=== PATIENT | female | born 1980 | race Caucasian/White ===

== ENCOUNTER 2018-11-28 14:01 | Emergency (ER) | payer BC, MEDICAID, OTHER ==
[2018-11-28 15:35] LABS: ABS Basophils 0 10^3/ul (0-0.2); ABS Eosinophils 0.3 10^3/ul (0-0.6); ABS Lymphocytes 2.1 10^3/ul (1.0-4.8); ABS Monocytes 0.5 10^3/ul (0-0.8); ABS Neutrophils 3.2 10^3/ul (1.5-7.7); ABS Nucleated RBC 0 10^3/ul; Eosinophil % 5.1 %; Hematocrit 38 % (35-47); Hemoglobin 12.9 g/dl (12.0-16.0); Lymphocyte % 33.7 %; Mean Corpuscular HGB Conc 34 g/dl (31-36); Mean Corpuscular Hemoglobin 31 pg (27-31); Mean Corpuscular Volume 90 fL (80-97); Mean Platelet Volume 7.7 fL (7.4-10.4); Nucleated Red Blood Cells % 0.1; Platelet Count 232 10^3/ul (150-450); Red Blood Count 4.23 10^6/ul (4.00-5.40); Red Cell Distribution Width 13 % (10.5-15); White Blood Count 6.1 10^3/ul (3.5-10.8)
--- NOTE | 2018-11-28 15:41 | ED ---
HPI Chest Pain - HPI Summary HPI Summary: This patient is a 38 year old female presenting to [facility] with a CC of chest pain that began 3 days ago. She states that since then the pain has gotten worse and began radiating to her left arm. She rates the pain 3/10 in severity. Pt reports that her father and grandfather had heart attacks at 48 years old and both . She states she may have strained it lifting her child. She has some neck pain on the left but it is worse with palpation. She is denying fever , chills, and n/v. She denies any hx of DVT and PE. She states she thought it was not a big deal but then she began worrying it was her heart and would like to have it checked out. - History of Current Complaint Chief Complaint: EDChestPainROMI Time Seen by Provider: 11/28/18 15:13 Hx Obtained From: Patient Onset/Duration: Started Days Ago, Still Present Timing: Constant Initial Severity: Mild Current Severity: Moderate Pain Intensity: 3 Pain Scale Used: 0-10 Numeric Chest Pain Radiates: Yes Chest Pain Radiates To:: Arm, Neck Associated Signs and Symptoms: Positive: Negative - vomiting. Negative: Nausea - Allergy/Home Medications Allergies/Adverse Reactions: Allergies Allergy/AdvReac Type Severity Reaction Status Date / Time No Known Allergies Allergy Verified 11/28/18 15:41 PMH/Surg Hx/FS Hx/Imm Hx Endocrine/Hematology History: Denies: Hx Systemic Lupus Erythematosus, Hx Unexplained Bleeding Cardiovascular History: Denies: Hx Coronary Artery Disease, Hx Hypercholesterolemia Respiratory History: Denies: Hx Chronic Obstructive Pulmonary Disease (COPD), Hx Seasonal Allergies Musculoskeletal History: Denies: Hx Back Problems, Hx of Fracture(s) Psychiatric History: Denies: Hx Schizophrenia Infectious Disease History: No Infectious Disease History: Denies: Traveled Outside the [place] in Last 30 Days - Family History Known Family History: Positive: Cardiac Disease - MS , Hypertension - Social History Lives: With Family Alcohol Use: None Substance Use Type: Reports: None Smoking Status (MU): Never Smoked Tobacco Review of Systems Negative: Fever, Chills Positive: Chest Pain Negative: Vomiting, Nausea Positive: Other - neck pain and pain into the arm All Other Systems Reviewed And Are Negative: Yes Physical Exam - Summary Physical Exam Summary: GENERAL: Patient is a well-developed and nourished F who is lying comfortable in the stretcher. Patient is not in any acute respiratory distress. HEAD AND FACE: Normocephalic EYES: PERRLA, EOMI x 2. EARS: Hearing grossly intact. MOUTH: Oropharynx within normal limits. NECK: Supple, trachea is midline, no adenopathy, no JVD, no carotid bruit. CHEST: Symmetric, TTP in the left chest wall LUNGS: Clear to auscultation bilaterally. No wheezing or crackles. CVS: Regular rate and rhythm, S1 and S2 present, no murmurs or gallops appreciated. ABDOMEN: Soft, non-tender. Bowel sounds are normal. No abdominal abnormal pulsations. EXTREMITIES: Full ROM in all major joints, no edema, no cyanosis or clubbing. NEURO: Alert and oriented x 3. No acute neurological deficits. Speech is normal and follows commands. SKIN: Dry and warm Triage Information Reviewed: Yes Vital Signs On Initial Exam: Initial Vitals Temp Pulse Resp BP Pulse Ox 98.5 F 74 16 117/79 96 11/28/18 14:08 11/28/18 14:08 11/28/18 14:08 11/28/18 14:08 11/28/18 14:08 Vital Signs Reviewed: Yes Diagnostics - Vital Signs Vital Signs Temp Pulse Resp BP Pulse Ox 11/28/18 15:17 57 99 11/28/18 15:15 59 111/60 98 11/28/18 14:08 98.5 F 74 16 117/79 96 - Laboratory Lab Results: Lab Results 11/28/18 Range/Units 15:26 WBC 6.1 (3.5-10.8) 10^3/ul RBC 4.23 (4.00-5.40) 10^6/ul Hgb 12.9 (12.0-16.0) g/dl Hct 38 (35-47) % MCV 90 (80-97) fL MCH 31 (27-31) pg MCHC 34 (31-36) g/dl RDW 13 (10.5-15) % Plt Count 232 (150-450) 10^3/ul MPV 7.7 (7.4-10.4) fL Neut % (Auto) 52.7 % Lymph % (Auto) 33.7 % [place] % (Auto) 7.7 % Eos % (Auto) 5.1 % Baso % (Auto) 0.8 % Absolute Neuts (auto) 3.2 (1.5-7.7) 10^3/ul Absolute Lymphs (auto) 2.1 (1.0-4.8) 10^3/ul Absolute Monos (auto) 0.5 (0-0.8) 10^3/ul Absolute Eos (auto) 0.3 (0-0.6) 10^3/ul Absolute Basos (auto) 0 (0-0.2) 10^3/ul Absolute Nucleated RBC 0 10^3/ul Nucleated RBC % 0.1 Result Diagrams: 11/28/18 15:26 11/28/18 15:26 Lab Statement: Any lab studies that have been ordered have been reviewed, and results considered in the medical decision making process. - Radiology CXR Radiology Interpretation Completed By: Radiologist Summary of Radiographic Findings: no active cardiopulmonary disease. ED physician has reviewed this report. - EKG 1414 Cardiac Rate: Bradycardia EKG Rhythm: Sinus Rhythm - at 60 bpm Summary of EKG Findings: no ischemic changes. Nml intervals Re-Evaluation - Re-Evaluation First Eval Re-Evaluation Time: 16:00 Change: Unchanged Comment: Pt had no improvement with NTG. Second Eval Re-Evaluation Time: 17:52 Change: Improved Comment: The patient's pain improved with toradol. Chest Pain Course/Dx - Course Assessment/Plan: This patient is a 38 year old female presenting to [facility] with a CC of chest pain that began 3 days ago. CXR reveals, per radiology, no active cardiopulmonary disease. EKG shows Nsr at 60 BPM. Pt had bloodwork with two negative troponins in the ED. I discussed results with patient and she reports feeling better. She is hemodynamically stable and safe for discharge. Strict return precautions given and she will otherwise follow up with cardiology. - Diagnoses Provider Diagnoses: Chest pain Discharge - Sign-Out/Discharge Documenting (check all that apply): Patient Departure Patient Received Moderate/Deep Sedation with Procedure: No - Discharge Plan Condition: Stable Disposition: HOME Patient Education Materials: Chest Pain (ED) Referrals: Melvina Burton DO [Primary Care Provider] - Bravo Marino MD [Medical Doctor] - Additional Instructions: Follow up with your primary care physician in 1-3 days. RETURN TO THE EMERGENCY DEPARTMENT FOR CHANGING OR WORSENING SYMPTOMS. - Billing Disposition and Condition Condition: STABLE Disposition: Home - Attestation Statements Document Initiated by Scribe: Yes Documenting Scribe: Russel Barrett Provider For Whom Delfinaibe is Documenting (Include Credential): Lilibeth Guerra MD Scribe Attestation: Russel Marcus , scribed for Lilibeth Guerra MD on 11/29/18 at 1805. Scribe Documentation Reviewed: Yes Provider Attestation: The documentation as recorded by the Russel rivers accurately reflects the service I personally performed and the decisions made by me, Lilibeth Guerra MD Status of Scribe Document: Viewed
[2018-11-28 15:44] LABS: Activated Partial Thrombo Time 33.3 seconds (26.0-36.3); INR 0.89 (0.77-1.02)
[2018-11-28] MEDS ORDERED: Nitroglycerin TAB 0.4 MG* 0.4 MG TAB ONE (15:46)
[2018-11-28] MEDS ORDERED: Ketorolac INJ* 30 MG/ML 1 ML VIAL IM ONE (15:47)
[2018-11-28] MEDS ORDERED: Nitroglycerin TAB 0.4 MG* 0.4 MG TAB SL ONE (15:47)
[2018-11-28 15:53] LABS: Albumin 4.2 g/dL (3.2-5.2); Albumin/Globulin Ratio 2.2 (1-3); BUN/Creatinine Ratio 12.8 (8-20); Calcium 8.9 mg/dL (8.6-10.3); EGFR African American 88.9 (>60); EGFR Non-African American 73.5 (>60); Globulin 1.9 g/dL (2-4); Magnesium 2.1 mg/dL (1.9-2.7); Potassium 3.6 mmol/L (3.5-5.0); Total Bilirubin 0.3 mg/dL (0.2-1.0); Total Protein 6.1 g/dL (6.4-8.9)
[2018-11-28 15:59] LABS: HCG Pregnancy 0.62 mIU/mL
[2018-11-28] MEDS ORDERED: Ketorolac INJ* 30 MG/ML 1 ML VIAL ONE (16:31)
[2018-11-28 18:38] VITALS: BP 104/76
== END 2018-11-28 18:36 | disposition home or self-care (01) ==
LOC: ED 14:01
DX: R07.9 Chest pain, unspecified (principal); M54.2 Cervicalgia
CPT/HCPCS: 36415; 71045; 80053; 83605; 83735; 83880; 84484; 84702; 85025; 85379; 85610; 85730; 93005; 96372; 99283; A9270-GY; J1885